=== PATIENT | male | born 1995 | race Caucasian/White ===

== ENCOUNTER 2017-05-24 17:49 | Emergency (ER) | payer SELFPAY ==
[~2017-05-24] VITALS: Ht 182.9 cm; Wt 97.5 kg
[2017-05-24 18:09] LABS: BASOPHILS # (AUTO) 0.1 10^3/uL (0.0-0.1); BASOPHILS % (AUTO) 1 % (0-10); EOSINOPHILS # (AUTO) 0.4 10^3/uL (0.0-0.3); EOSINOPHILS % (AUTO) 6 % (0-10); LYMPHOCYTES # (AUTO) 1.3 X 10^3 (1.0-4.0); LYMPHOCYTES % (AUTO) 21 % (12-44); MEAN CORPUSCULAR HEMOGLOBIN 30 PG (25-34); MEAN CORPUSCULAR HGB CONC 36 G/DL (32-36); MEAN CORPUSCULAR VOLUME 84 FL (80-99); MEAN PLATELET VOLUME 10.4 FL (7.4-10.4); MONOCYTES # (AUTO) 0.7 X 10^3 (0.0-1.0); MONOCYTES % (AUTO) 11 % (0-12); NEUTROPHILS # (AUTO) 3.7 X 10^3 (1.8-7.8); NEUTROPHILS % (AUTO) 61 % (42-75); PLATELET COUNT 258 10^3/uL (130-400); RED BLOOD COUNT 5.52 10^6/uL (4.35-5.85); RED CELL DISTRIBUTION WIDTH 11.6 % (10.0-14.5); WHITE BLOOD COUNT 6.2 10^3/uL (4.3-11.0)
[2017-05-24] MEDS ORDERED: LACTATED RINGERS 1,000 ML IV ONE (18:14)
[2017-05-24] MEDS ORDERED: ONDANSETRON 4 MG/2 ML (SDV) Z0FRAN IVP ONE (18:15)
[2017-05-24 18:29] LABS: ALANINE AMINOTRANSFERASE 21 U/L (0-55); ALBUMIN 4.8 GM/DL (3.2-4.5); AMYLASE 57 U/L (25-125); ANION GAP 14 MMOL/L (5-14); ASPARTATE AMINO TRANSFERASE 20 U/L (5-34); BILIRUBIN,TOTAL 0.8 MG/DL (0.1-1.0); BLOOD UREA NITROGEN 11 MG/DL (7-18); BUN/CREATININE RATIO 10; CALCIUM 10.3 MG/DL (8.5-10.1); CARBON DIOXIDE 24 MMOL/L (21-32); CHLORIDE 103 MMOL/L (98-107); CREATININE SERUM 1.06 MG/DL (0.60-1.30); GFR ESTIMATED > 60; GLUCOSE 91 MG/DL (70-105); LIPASE 12 U/L (8-78); POTASSIUM 3.7 MMOL/L (3.6-5.0); SODIUM 141 MMOL/L (135-145); TOTAL PROTEIN 8.1 GM/DL (6.4-8.2)
[2017-05-24] MEDS ORDERED: IOHEXOL 350 MG/ML 100 ML (OMNIPAQUE 350) VIAL IV ONE (18:30)
[2017-05-24] MEDS ORDERED: NS 100 ML (IVPB) BAG IV ONE (18:30)
--- NOTE | 2017-05-24 18:41 | ED Abdominal Pain ---
General Chief Complaint: Abdominal/GI Problems Stated Complaint: ABD SWELLING,PAIN Nursing Triage Note: pt c/o midline/epigastric abdominal pain that began several days ago. Sepsis Screen: No Definite Risk Source of Information: Patient, Family (MOM) History of Present Illness Time Seen By Provider: 18:05 Initial Comments C/O DIFFUSE ABDOMINAL PAIN X 1 WEEK WORSE THE LAST COUPLE OF DAYS PAIN IS MOSTLY IN EPIGASTRIC AREA NOW C/O NAUSEA, NO VOMITING C/O ACID REFLUX SYMPTOMS--ONGOING PROBLEM FOR LONG TIME--NO TESTS, NO IMPROVEMENT WITH PEPCID NO FEVER NO URINARY SYMPTOMS--VOIDED IN WAITING ROOM SOON HE ARRIVED PT HAS BEEN HAVING CONSTIPATION FOR AT LEAST 3 WEEKS, LAST BM WAS A FEW SMALL DESTINI 2 DAYS AGO--HAS NOT TAKEN ANYTHING FOR CONSTIPATION FEELS LIKE ABDOMEN IS SWELLING PT CONTINUES TO EAT NORMALLY--LAST ATE AT NO[facility] TODAY--[facility] + [facility] PCP: FT. ELBERT NORRIS Allergies and Home Medications Allergies Coded Allergies: codeine (Verified Allergy, Mild, 05/24/17) penicillin G (Verified Allergy, Mild, 05/24/17) Review of Systems Constitutional: no symptoms reported, No chills, No fever EENTM: No Symptoms Reported Respiratory: No Symptoms Reported Cardiovascular: No Symptoms Reported Gastrointestinal: See HPI, Abdomen Distended, Abdominal Pain, Constipated, Nausea, Denies Poor Fluid Intake, Denies Vomiting Genitourinary: No Symptoms Reported Musculoskeletal: no symptoms reported Skin: no symptoms reported Psychiatric/Neurological: No Symptoms Reported Endocrine: No Symptoms Reported Hematologic/Lymphatic: No Symptoms Reported Past [id number] Hx Patient Social History Alcohol Use: Occasionally Uses Recreational Drug Use: No Smoking Status: Never a Smoker 2nd Hand Smoke Exposure: No Recent Foreign Travel: No Contact w/Someone Who Travel: No Recent Infectious Disease Expo: No Recent Hopitalizations: No Physical Abuse: No Sexual Abuse: No Mistreated: No Fear: No Immunizations Up To Date Tetanus Booster (TDap): Unknown Seasonal Allergies Seasonal Allergies: No Surgeries History of Surgeries: No Respiratory History of Respiratory Disorde: No Cardiovascular History of Cardiac Disorders: Yes (SVT AT --WAS ON MEDICATIONS UNTIL AGE 1 , NO PROBLEMS SINCE) Neurological History of Neurological Disord: No Genitourinary History of Genitourinary Disor: No Gastrointestinal History of Gastrointestinal Di: Yes (SELF -DX GERD) Gastrointestinal Disorders: Gastroesophageal Reflux Musculoskeletal History of Musculoskeletal Dis: No Endocrine History of Endocrine Disorders: No HEENT History of HEENT Disorders: No Cancer History of Cancer: No Psychosocial History of Psychiatric Problem: No Suicide Risk Score: 1 Integumentary History of Skin or Integumenta: No Physical Exam Vital Signs VS - Last 72 Hours, by Label 05/24/17 05/24/17 17:54 19:46 Temp 98.1 Pulse 104 88 Resp 18 18 B/P (MAP) 145/90 (108) Pulse Ox 96 98 O2 Delivery Room Air Capillary Refill : Less Than 3 Seconds General Appearance: WD/WN, no apparent distress, other (WALKS UPRIGHT AND MOVES WITHOUT DIFFICULTY. 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, no motor/sensory deficits, alert, normal mood/affect, oriented x 3 Skin: normal color, warm/dry, No rash Progress/Results/Core Measures Results/Orders Lab Results Laboratory Tests Test 05/24/17 18:00 05/24/17 19:15 Range/Units White Blood Count 6.2 4.3-11.0 10^3/uL Red Blood Count 5.52 4.35-5.85 10^6/uL Hemoglobin 16.7 13.3-17.7 G/DL Hematocrit 46 40-54 % Mean Corpuscular Volume 84 80-99 FL Mean Corpuscular Hemoglobin 30 25-34 PG Mean Corpuscular Hemoglobin Concent 36 32-36 G/DL Red Cell Distribution Width 11.6 10.0-14.5 % Platelet Count 258 130-400 10^3/uL Mean Platelet Volume 10.4 7.4-10.4 FL Neutrophils (%) (Auto) 61 42-75 % Lymphocytes (%) (Auto) 21 12-44 % Monocytes (%) (Auto) 11 0-12 % Eosinophils (%) (Auto) 6 0-10 % Basophils (%) (Auto) 1 0-10 % Neutrophils # (Auto) 3.7 1.8-7.8 X 10^3 Lymphocytes # (Auto) 1.3 1.0-4.0 X 10^3 Monocytes # (Auto) 0.7 0.0-1.0 X 10^3 Eosinophils # (Auto) 0.4 H 0.0-0.3 10^3/uL Basophils # (Auto) 0.1 0.0-0.1 10^3/uL Sodium Level 141 135-145 MMOL/L Potassium Level 3.7 3.6-5.0 MMOL/L Chloride Level 103 98-107 MMOL/L Carbon Dioxide Level 24 21-32 MMOL/L Anion Gap 14 5-14 MMOL/L Blood Urea Nitrogen 11 7-18 MG/DL Creatinine 1.06 0.60-1.30 MG/DL Estimat Glomerular Filtration Rate > 60 BUN/Creatinine Ratio 10 Glucose Level 91 70-105 MG/DL Calcium Level 10.3 H 8.5-10.1 MG/DL Total Bilirubin 0.8 0.1-1.0 MG/DL Aspartate Amino Transf (AST/SGOT) 20 5-34 U/L Alanine Aminotransferase (ALT/SGPT) 21 0-55 U/L Alkaline Phosphatase 77 40-136 U/L Total Protein 8.1 6.4-8.2 GM/DL Albumin 4.8 H 3.2-4.5 GM/DL Amylase Level 57 25-125 U/L Lipase 12 8-78 U/L Urine Color YELLOW Urine Clarity CLEAR Urine pH 5 5-9 Urine Specific [place] 1.010 L 1.016-1.022 Urine Protein 1+ H NEGATIVE Urine Glucose (UA) NEGATIVE NEGATIVE Urine Ketones 3+ H NEGATIVE Urine Nitrite NEGATIVE NEGATIVE Urine Bilirubin NEGATIVE NEGATIVE Urine Urobilinogen 1 NORMAL MG/DL Urine Leukocyte Esterase NEGATIVE NEGATIVE Urine RBC (Auto) 1+ H NEGATIVE Urine RBC NONE /HPF Urine WBC RARE /HPF Urine Squamous Epithelial Cells RARE /HPF Urine Renal Epithelial Cells NONE /HPF Urine Crystals NONE /LPF Urine Bacteria NEGATIVE /HPF Urine Casts NONE /LPF Urine Mucus NEGATIVE /LPF Urine Culture Indicated NO My Orders Orders - BIJAN,JONG K DO Saline Lock/Iv-Start (05/24/17 18:03) Amylase (05/24/17 18:03) Cbc With Automated Diff (05/24/17 18:03) Comprehensive Metabolic Panel (05/24/17 18:03) Lipase (05/24/17 18:03) Ua Culture If Indicated (05/24/17 18:03) Saline Lock/Iv-Start (05/24/17 18:14) Lactated Ringers (Lr 1000 Ml Iv Solution (05/24/17 18:14) Ct Abd/Pelv W (Appendicitis) (05/24/17 18:14) Abdomen, Flat & Upright/Decub (05/24/17 18:14) Ondansetron Injection (Zofran Injectio (05/24/17 18:15) Iohexol Injection (Omnipaque 350 Mg/Ml 1 (05/24/17 18:30) Ns (Ivpb) (Sodium Chloride 0.9% Ivpb Bag (05/24/17 18:30) Medications Given in ED Vital Signs/I&O Vital Sign - Last 12Hours 05/24/17 05/24/17 17:54 19:46 Temp 98.1 Pulse 104 88 Resp 18 18 B/P (MAP) 145/90 (108) Pulse Ox 96 98 O2 Delivery Room Air Blood Pressure Mean: 108 Diagnostic Imaging Comments ABDOMEN XRAYS--CONSTIPATION OTHERWISE NO ACUTE PROCESS CT ABDOMEN/PELVIS--NO ACUTE PROCESS PER RADIOLOGIST REPORTS @ 1909 Reviewed: Reviewed by Me Departure Impression Impression: Primary Impression: Constipation Disposition: 01 HOME, SELF-CARE Condition: Stable Departure-Patient Inst. Referrals: JADA BANG MD (PCP/Family) Primary Care Physician Patient Instructions: Constipation, Adult (DC), High Fiber Diet Add. Discharge Instructions: NO FOOD UNTIL YOUR BOWELS HAVE MOVED AND ARE CLEAR LOTS OF CLEAR LIQUIDS--WATER, BROTH, JELLO, GATORADE MIRALAX--TAKE EVERY 2 HOURS UNTIL YOU HAVE A BOWEL MOVEMENT,AND CONTINUE UNTIL YOUR STOOLS ARE CLEAR, THEN TAKE ONCE DAILY MAGNESIUM CITRATE EVERY 2 HOURS UNTIL YOU HAVE A BOWEL MOVEMENT, AND CONTINUE UNTIL YOUR STOOLS ARE CLEAR DULCOLAX SUPPOSITORIES FOR BM FLEETS ENEMAS FOR BM RETURN TO ER IN 2-3 DAYS IF NO BETTER All discharge instructions reviewed with patient and/or family. Voiced understanding. JONG THAKKAR DO May 24, 2017 18:41
--- NOTE | 2017-05-24 18:47 | Diagnostic Imaging Report ---
INDICATION: Abdominal pain COMPARISON: None FINDINGS: KUB and upright views of the abdomen demonstrate mild constipation without obstruction or ileus. There is no free air. Osseous structures normal. IMPRESSION: Mild constipation Dictated by: Dictated on workstation # [id number]
--- NOTE | 2017-05-24 18:56 | Diagnostic Imaging Report ---
PROCEDURE: CT abdomen and pelvis with contrast, rule out appendicitis. TECHNIQUE: Multiple contiguous axial images were obtained through the abdomen and pelvis after the administration of intravenous contrast. INDICATION: Abdominal and periumbilical pain, possible appendicitis COMPARISON: None FINDINGS: The lung bases are clear. Liver, gallbladder, spleen, pancreas, adrenal glands, kidneys, vascular structures and small bowel normal. The appendix is normal. There is some mild constipation throughout the colon without obstruction or ileus. The distal ureters and urinary bladder are normal. There is no hernia. No lymphadenopathy. Osseous structures are age-appropriate. IMPRESSION: 1. Normal appendix 2. Mild constipation without obstruction, ileus or inflammation. Dictated by: Dictated on workstation # [id number]
[2017-05-24 19:23] LABS: BILIRUBIN,URINE NEGATIVE (NEGATIVE); KETONES,URINE 3+ (NEGATIVE); LEUKOCYTE ESTERASE ,URINE NEGATIVE (NEGATIVE); NITRITE,URINE NEGATIVE (NEGATIVE); PH,URINE 5 (5-9); PROTEIN,URINE 1+ (NEGATIVE); UROBILINOGEN,URINE 1 MG/DL (NORMAL)
[2017-05-24 19:39] LABS: SQUAMOUS EPITHELIAL CELL,UR RARE /HPF; WBC,URINE RARE /HPF
[2017-05-24 19:46] VITALS: BP 135/70
== END 2017-05-24 19:41 | disposition home or self-care (01) ==
LOC: ER 17:52
DX: K59.00 Constipation, unspecified (principal); K21.9 Gastro-esophageal reflux disease without esophagitis
CPT/HCPCS: 36415; 74020; 74177; 80053; 81000; 82150; 83690; 85025